=== PATIENT | male | born 1965 | race Caucasian/White ===

== ENCOUNTER → 2016-11-18 | Outpatient (CLI) | payer OTHER ==
[~2016-11-18] MED LIST: ACETAMINOPHEN PO; ADVAIR 250-501 EACH IH; ALB/IPRATROPIUM/1 E1 NEB; ALBUTEROL17 GM INH; ALTACE PO; ASPIRIN EC81 M1 PO; ASPIRIN81 M2 PO; AUGMENTIN PO; AZOR PO; BAYER ASPIRIN325 M1 PO; CARAFATE1 GM PO; CERTAGEN PO; CIPRO PO; CIPRO750 MG PO; COMBIVENT INH14.7 GM; COMBIVENT INH14.7 GM INH; COMBIVENT MININEB INH; COMBIVENT RESPIM4 GM IH; COMBIVENT RESPIM4 GM INH; COMBIVENT U/D3 M2 INH; DAILY VITAMIN PO; DUONEB; DUONEB 2.5-0.5 M3 ML NEB; FLOMAX0.4 MG PO; FOLIC ACID1 MG PO; HUMIBID-LA600 MG PO; HYDROCHLOROTHIA25 MG PO; HYDROCODON-ACE1 EAC5 PO; IBUPROFEN PO; LEVAQUIN PO; LEVAQUIN750 MG PO; LIBRIUM PO; LIPITOR20 MG PO; LIPITOR40 MG PO; LOPRESSOR PO; MELOXICAM15 MG PO; MINOCYCLINE HCL50 M1 PO; MOTRIN400 MG PO; MULTI-VITAMIN1 EAC1 PO; NORVASC PO; OMEPRAZOLE20 M2; PREDNISONE PO; PREDNISONE10 MG PO; PREDNISONE10 MG/DOSE PO; PRILOSEC PO; PRILOSEC20 M1 PO; PRILOSEC20 MG PO; ROBITUSSIN A-C10 ML PO; ROBITUSSIN COU118 ML PO; ROCEPHIN IV; SERTRALINE HCL50 MG PO; SPIRIVA18 MCG INH; STOOL SOFTNER PO; SYMBICORT INH; TOPROL XL PO; TUDORZA PRESS400 MCG INH; TYLOX 5/500 CAP1 CAP PO; VICODIN 5/500 T1 TAB PO; VISTARIL50 MG PO; VITAMIN B PO; ZANTAC PO; ZOLOFT100 MG; ZOLOFT100 MG PO; [UNRECOGNIZED DRUG - OTHER]
--- NOTE | ~2016-11-18 | EKG ---
PATIENT: SU QUINN UNIT #: [id number] Ventricular Rate: 85 BPM Atrial Rate: 85 BPM P-R Interval: 146 ms QRS Duration: 90 ms Q-T Interval: 378 ms QTC Calculation(Bezet): 449 ms P [place]: 58 degrees Calculated R [place]: 57 degrees Calculated T [place]: 35 degrees Diagnosis Line: Normal sinus rhythm Diagnosis Line: Normal ECG Diagnosis Line: When compared with ECG of 26-OCT-2014 19:21, Diagnosis Line: No significant change was found Diagnosis Line: Confirmed by SONIDO HEBERT MD ([id number]) on 11/18/2016 Diagnosis Line: 10:21:40 PM INTERPRETING MD: EMILEE COCHRAN
== END | disposition home or self-care (01) ==
LOC: CAMB 08:45
DX: Z01.818 Encounter for other preprocedural examination (principal); R19.09 Other intra-abdominal and pelvic swelling, mass and lump; N62 Hypertrophy of breast
CPT/HCPCS: 93005

== ENCOUNTER → 2016-11-25 | Day surgery (SDC) | payer OTHER ==
--- NOTE | ~2016-11-25 | OR ---
Unit #: [id number] #: [id number] Patient: SU QUINN [id number] [address] [place], [place] [address] [id number] MR#: [id number] NAME: SU QUINN ROOM: Date of Procedure: 11/25/2016 Admission Date: 11/25/2016 Surgeon: Torito Cabrera Jr., M.D. : 1965 Attending Physician: Torito Cabrera Jr., M.D. Primary Care Physician: Milton Cornell M.D. OPERATIVE REPORT INDICATIONS FOR PROCEDURE The patient is a 51-year-old white male, who recently presented to the office complaining of a nodular mass of the right abdominal wall anteriorly, which is causing some discomfort and pain and also severe pain in the left breast related to a mass. He has had no history of trauma. 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 He is brought at this time for excision of both of these at his request. He understands the procedure including the risks, including that of recurrence, infection, poor healing, and consents. PREOPERATIVE DIAGNOSIS Gynecomastia, left breast with pain and a lipomatous mass of the right anterior abdominal wall. POSTOPERATIVE DIAGNOSIS Gynecomastia, left breast with pain and a lipomatous mass of the right anterior abdominal wall. Lipomatous mass approximately 6 cm in diameter and the mass of the left breast approximately 6 cm in diameter. ANESTHESIA General with 0.5% Marcaine with epinephrine locally. PROCEDURES PERFORMED Left subcutaneous mastectomy and excision of lipomatous mass, right anterior abdominal wall. DESCRIPTION OF PROCEDURE The patient was positioned in the supine position. After being anesthetized, he was prepped and draped in routine fashion for excision of the abdominal wall mass as well as subcu mastectomy on the left. A transverse incision was made on the right anterior abdominal wall over the palpable mass after it was locally anesthetized with 0.5% Marcaine with epinephrine. This was carried down through subcutaneous tissue where there was a lipomatous mass present approximately 5 to 6 cm in diameter. This was excised from the surrounding tissue with a #10 blade scalpel as well as the Bovie cautery. After was completely removed, it was sent to pathology. Hemostasis was achieved with Bovie cautery. The deeper tissue approximated with interrupted 3-0 Vicryl sutures. Skin edges approximated with stainless-steel skin clips and skin stapling device. At this point, a keyhole incision was made extending inferior to the areola on the left breast and out lateral on both sides, full length of approximately 3 Unit #: [id number] #: [id number] Patient: SU QUINN. This was carried down through the subcutaneous tissue to a nodular mass. This mass was dissected free of the posterior aspect of the areola and the nipple and then circumferentially was dissected free of the surrounding fatty tissue down to the muscle. After it was completely removed, it was sent to pathology, appeared to be benign gynecomastia and not cancer. After hemostasis was achieved with Bovie cautery, a 10 mm Stone-Galvan drain was placed in deeper aspect of the wound and the subcutaneous tissue approximated with interrupted 3-0 Vicryl sutures. Skin edges approximated with stainless-steel skin clips and skin stapling device. Sterile dressings were applied externally with a compression dressing on the chest wall. Estimated blood loss less than 30 mL. The patient received less than 1000 mL crystalloid solution during the procedure. Sponges and instrument counts were correct x3. One Stone-Galvan drain used in the area of the left breast incision and no complications. The patient was taken to the recovery room with stable vital signs in satisfactory condition. Dictated by... Torito Cabrera Jr. MJulien PENALOZA/tobi TD: 11/25/2016 22:34 JOB #: [id number] OPERATIVE REPORT Page 1 of 1 X Torito Cabrera MD X PROCEDURE OPERATIVE NOTE
[2016-11-25 07:17] LABS: BUN/CREATININE RATIO 16.66; CALCIUM SERUM 9.1 mg/dL (8.4-10.2); CREATININE SERUM 0.6 mg/dL (0.6-1.4); GLOM FILT RATE Estimated 117.3 mL/min (>60); POTASSIUM 3.6 mmol/L (3.5-5.1)
== END | disposition home or self-care (01) ==
LOC: CSUR 05:52
PROVIDERS: Surgery
DX: D17.79 Benign lipomatous neoplasm of other sites (principal); N62 Hypertrophy of breast; I10 Essential (primary) hypertension; J44.9 Chronic obstructive pulmonary disease, unspecified; E78.5 Hyperlipidemia, unspecified; K21.9 Gastro-esophageal reflux disease without esophagitis; F17.210 Nicotine dependence, cigarettes, uncomplicated; Z87.442 Personal history of urinary calculi; Z91.041 Radiographic dye allergy status; Z79.82 Long term (current) use of aspirin; Z79.899 Other long term (current) drug therapy; Z90.49 Acquired absence of other specified parts of digestive tract; Z98.890 Other specified postprocedural states
CPT/HCPCS: 80048; 88304; 88305; J2250; J3010

== ENCOUNTER 2017-01-08 19:11 | Emergency (ER) | payer OTHER ==
[2017-01-08 22:29] LABS: BASOPHIL# 0.1 X10e3 (0-0.3); BASOPHIL% 0.7 % (0-2.5); EOSINOPHIL# 0.7 X10e3 (0-0.7); EOSINOPHIL% 5.9 % (0.0-7.0); HEMATOCRIT 43.8 % (38.0-50.0); HEMOGLOBIN 14.8 gm/dL (13.0-16.0); LYMPHOCYTE# 2.2 X10e3 (1.0-3.5); MEAN CELL VOLUME 90.7 FL (83-96); MEAN CORPUSCULAR HEMOGLOBIN 30.6 PG (28-34); MEAN CORPUSCULAR HGB CONC 33.7 g/dL (30-36); MEAN PLATELET VOLUME 8.4 FL (6.5-11.5); MONOCYTE# 1.1 X10e3 (0-1.0); NEUTROPHIL# 7.3 X10e3 (1.5-7.1); NEUTROPHIL% 64.4 % (40-75); PLATELET COUNT 232 X10e3 (140-420); RED BLOOD COUNT 4.82 X10e (3.90-5.60); RED CELL DISTRIBUTION WIDTH 13.6 % (11.0-15.5); WHITE BLOOD COUNT 11.3 X10e3 (4.0-10.5)
[2017-01-08 22:31] LABS: DIFF IND NO
[2017-01-08 22:37] LABS: PARTIAL THROMBOPLASTIN TIME 27.9 SECONDS (23.5-31.3); PROTHROMBIN TIME (PATIENT) 10.5 SECONDS (9.6-11.5)
[2017-01-08 22:40] LABS: ALBUMIN SERUM 4.3 g/dL (3.5-5.0); BILIRUBIN, DIRECT 0.1 mg/dL (0.0-0.2); BILIRUBIN,INDIRECT 0.4 mg/dL (0.0-0.9); BILIRUBIN,TOTAL 0.5 mg/dL (0.2-2.0); CALCIUM SERUM 9.3 mg/dL (8.4-10.2); CREATININE SERUM 0.5 mg/dL (0.6-1.4); GLOM FILT RATE Estimated 126.4 mL/min (>60); POTASSIUM 3.7 mmol/L (3.5-5.1); PROTEIN TOTAL SERUM 8.1 g/dL (6.0-8.3)
== END 2017-01-09 00:50 | disposition home or self-care (01) ==
LOC: CFTX 19:11 → CED 19:11 → CFTX 21:53
PROVIDERS: Nurse Practitioner
DX: L03.111 Cellulitis of right axilla (principal); R21 Rash and other nonspecific skin eruption; I10 Essential (primary) hypertension; E78.5 Hyperlipidemia, unspecified; F41.9 Anxiety disorder, unspecified; F17.210 Nicotine dependence, cigarettes, uncomplicated; Z87.442 Personal history of urinary calculi; Z90.89 Acquired absence of other organs
CPT/HCPCS: 36415; 80048; 80076; 82150; 83690; 85025; 85610; 85730; 87040; 96361; 96365; 96375; 99284; J1200; J1885